=== PATIENT | male | born 1970 ===

== ENCOUNTER 2025-06-24 05:47 | Emergency (ER) | payer OTHER, SELFPAY ==
[2025-06-24 05:52] VITALS: BP 143/90
[2025-06-24 06:25] VITALS: BP 127/89
[2025-06-24 06:27] VITALS: BMI 28.5
[2025-06-24 06:39] LABS: Hematocrit 41.3 % (39.0-52.0); Hemoglobin 13.4 g/dL (13.0-18.0); Mean Corp Hgb Conc. 32.4 g/dL (33.0-37.0); Mean Corpuscular Volume 77.1 fL (80.0-94.0); Nucleated Red Blood Cells % 0 % (-); Platelet Count 273 10^3/uL (130-400); Red Cell Dist. Width 14.6 % (11.5-14.5)
[2025-06-24 06:52] LABS: ALT (SGPT) 21 U/L (0-50); AST (SGOT) 20 U/L (17-59); Albumin 4.6 g/dl (3.5-5.0); Alkaline Phosphatase 61 U/L (38-126); Blood Urea Nitrogen 10 mg/dl (9-20); Calcium 9.4 mg/dl (8.4-10.2); Carbon Dioxide 24 mmol/L (22-30); Chloride 107 mmol/L (98-107); Estimated Creatinine Clearance > 125 ml/min; Glucose 106 mg/dl (70-99); Potassium 4.3 mmol/L (3.5-5.1); Sodium 141 mmol/L (135-145); Total Protein 7.7 g/dl (6.3-8.2); eGFR > 60.00
[2025-06-24 07:00] VITALS: BP 148/82
[2025-06-24 07:05] LABS: Troponin I < 0.012 ng/ml
[2025-06-24 08:00] VITALS: BP 118/82
[2025-06-24 08:42] LABS: Troponin I < 0.012 ng/ml
[2025-06-24 09:00] VITALS: BP 93/76
--- NOTE | 2025-06-24 09:45 | ED.GENMED ---
History of Present Illness
General
Chief Complaint: Chest Pain
Source: patient and spouse
Time Seen by Provider: 06/24/25 06:34
History of Present Illness
History of Present Illness:
Note:
CHIEF COMPLAINT(S)
Chest pain.
HISTORY OF PRESENT ILLNESS
The patient is a 55-year-old male presenting with chest pain that started before 4 a.m. The pain is described as pressure-like and located in the middle of the chest. The patient denies any similar previous episodes. The chest pain worsens with deep
breaths and shoulder movements but is present even without exertion. The discomfort radiates to the back. The patient went to bed feeling fine without any pain. He has a known history of hypertension and diabetes. There is no known history of
coronary artery disease, and the patient has not undergone a stress test before. The patients family history includes a brother who from malaria, with no known history of cardiac issues.
Additional historian
Spouse states that he did have several episodes similar in the past that was attributed to anxiety after his brother . His brother of malaria. Spouse states that he had workups that were unremarkable but did not have a stress test to her
knowledge
PAST MEDICAL AND SURGICAL HISTORY
None
CHRONIC MEDICAL CONDITIONS SIGNIFICANTLY AFFECTING CARE
None
SOCIAL DETERMINANTS AFFECTING HEALTH
None indicated.
ALLERGIES
No known allergies to medications.
FAMILY HISTORY
Brother , cause of : malaria.
IMMUNIZATION HISTORY
Not discussed.
SOCIAL HISTORY
The patient denies smoking and drinking alcohol.
REVIEW OF SYSTEMS
- Cardiovascular: Reports pressure-like chest pain, no edema.
- Pulmonary: Discomfort worsens with deep breaths, otherwise normal breathing.
- Gastrointestinal: No belching.
- Musculoskeletal: Pain radiates to the back and worsens with shoulder movement.
PHYSICAL EXAM
General: Alert, no acute distress.
Skin: Warm, dry.
Head: Normocephalic, atraumatic.
Neck: Supple, trachea midline.
Eye Ears, nose, mouth and throat: Oral mucosa moist.
Cardiovascular: Regular heart rate, no murmurs. Normal peripheral perfusion, no edema.
Respiratory: Lungs clear to auscultation, respirations non-labored.
Gastrointestinal: Abdomen soft, non-tender.
Back: Normal range of motion, normal alignment.
Musculoskeletal: Normal ROM, normal strength. Radiating pain noted upon shoulder movement.
Neurological: Alert and oriented to person, place, time, and situation, No focal neurological deficit observed.
Psychiatric: Cooperative, appropriate mood & affect.
PROBLEM LIST
Acute: Chest pain.
Chronic: Hypertension, diabetes.
PLAN
- Monitor and repeat cardiac enzyme tests to rule out acute coronary syndrome.
- Chest X-ray reviewed and normal.
- Assess pain regularly, and notify staff if pain worsens.
DIFFERENTIAL DIAGNOSIS
The Differential Diagnosis includes, in no particular order and is not limited to:
1. Acute Coronary Syndrome
2. Pulmonary Embolism
3. Gastroesophageal Reflux Disease
4. Musculoskeletal Pain
5. Aortic Dissection
6. Costochondritis
7. Pneumonia
8. Pericarditis
9. Gallbladder disease
10. Panic attack
EKG
My independent EKG interpretation is:
- Rhythm: Normal sinus rhythm
- Heart Rate: 65
- VT Interval: Normal
- QRS Duration: Normal
- QT Interval: Normal
- [place]: Normal axis
- Abnormalities: No acute ischemic changes
- Other Observations: Nonspecific ST-T wave changes
Disposition:
SUMMARY OF ENCOUNTER
The patient, a 55-year-old male, presented to the emergency department with chest pain starting before 4 a.m. The pain, described as pressure-like, worsened with movements such as extending his shoulders. The pain was somewhat reproducible upon
examination. The patient has known hypertension and diabetes but does not have significant additional risk factors for coronary artery disease. Upon examination, vital signs, including blood pressure at 118/82, were normal, and the patient appeared
well. An EKG showed nonspecific findings, but troponin type 2 tests were negative. Other tests, including a CBC, chemistry panel, and B-type natriuretic peptide (BNP) test, returned normal results, as did a chest x-ray. Based on these findings, it
appears appropriate for the patient to be managed on an outpatient basis and referred for cardiology follow-up for further evaluation, possibly including stress testing.
ASSESSMENT
The patient is experiencing chest pain with characteristics suggestive of musculoskeletal origins, given the pains reproducibility with physical movement and negative cardiac markers.
PLAN
The patient will be monitored for any changes, and pain assessment will continue. Its recommended that he follow up with a drug discovery informatics specialist for further evaluation, including a possible stress test to rule out any underlying coronary artery
disease.
INDEPENDENT REVIEW OF LABS AND INTERPRETATION OF TESTS
- My independent review of EKG is nonspecific findings observed.
- My independent review of Troponin type 2 indicates negative results.
- My independent review of CBC shows normal results.
- My independent review of chemistry is normal findings.
- My independent review of B-type natriuretic peptide (BNP) is normal.
- My independent interpretation of the chest x-ray is normal.
PATIENT EDUCATION AND COUNSELING
The patient was advised that while the immediate findings were reassuring, it is important to pursue further evaluation with a reed press feeder to rule out any cardiac concerns, especially given his underlying hypertension and diabetes.
FOLLOW-UP INSTRUCTIONS
The patient is advised to schedule a follow-up appointment with a reed press feeder for further evaluation and possible stress testing.
MEDICAL DECISION MAKING
- Number and Complexity of Problems Addressed: Chronic conditions affecting care include hypertension and diabetes. Differential Diagnosis included acute coronary syndrome, pulmonary embolism, gastroesophageal reflux disease, musculoskeletal pain,
aortic dissection, costochondritis, pneumonia, pericarditis, gallbladder disease, and panic attack.
- Data:
- Category 1: My independent interpretations included nonspecific EKG findings and various normal lab results (CBC, chemistry, BNP). A normal chest x-ray was also reviewed.
- Category 2: Not applicable.
- Category 3: Discussion of management, particularly about potential outpatient follow-up and cardiology evaluation.
- Risk: Consideration of Admission/Observation: Escalation of care including admission/observation was considered given the complexity and risk of the patients presenting complaint, exam findings, and their underlying comorbidities. However,
ultimately the patient is considered safe for outpatient management with close follow-up. Reasoning: Work-up reassuring, does not reveal any acute life/organ-threatening processes, patients symptoms well controlled upon reevaluation, reexamination
is reassuring, vitals are stable, patient agreeable with discharge, reliable for follow-up.
DIAGNOSIS
Atypical chest pain
Past History
Past History
ED Past Medical History: None
Phy Exam
Physical Exam
Physical Exam:
.
Scores
Heart Score for Chest Pain Patients
STEMI patient?: No
History: Slightly or Non-Suspicious
ECG: Nonspecific Repolarization
Age: >45 - <65 years
Risk Factors: No Risk Factors
Troponin: </= Normal Limit
Heart Score for Chest Pain Patients: 2
Heart Score Risk: 2.5% MACE over next 6 weeks
Course
Orders/Labs/Results
Orders:
Orders
06/24/25 05:50
Electrocardiogram (*1) Urgent
Reason for Study: Other
Other Reason for Exam: Respiratory Distress
Cardiac Monitoring- Treatment ONCE
EKG- Treatment ONCE
IV Insert/Care/Rem.- Treatment PRN
CR Chest - 2 Views Urgent
Comment:
Reason For Exam: respiratory distress
O2 Therapy [RESP] Urgent
Titrate/Wean O2 to maintain O2 sat greater than (%): 93
Special Instructions: TO MAINTAIN CONTINUOUS O2 SATS >/= 93%
Pulse Ox/cont/shift [RESP] Urgent
Quantity: 1
Special Instructions: continuous pulse ox
06/24/25 06:31
Complete Blood Count/With Diff Urgent
Comprehensive Metabolic Panel Urgent
NT-proBNP Urgent
Troponin I Urgent
06/24/25 07:16
EKG- Treatment ONCE
06/24/25 07:51
Troponin I Urgent
06/24/25 08:50
Electrocardiogram (*1) Urgent
Reason for Study: Chest Pain
Abnormal Lab Results
06/24/25
06:31
MCV 77.1 L fL
(80.0-94.0)
MCH 25.0 L pg
(27.0-31.0)
MCHC 32.4 L g/dL
(33.0-37.0)
RDW 14.6 H %
(11.5-14.5)
Absolute Monos (auto) 0.8 H 10^3/uL
(0.1-0.6)
Monocytes % 10.1 H %
(1.7-9.3)
Creatinine 0.6 L mg/dL
(0.7-1.3)
Glucose 106 H mg/dl
(70-99)
06/24/25 06:31
06/24/25 06:31
Vital Signs
Initial and Last Documented VS:
Initial Vital Signs
Temp Pulse Resp BP Pulse Ox
97.7 F 67 20 143/90 100
06/24/25 05:52 06/24/25 05:52 06/24/25 05:52 06/24/25 05:52 06/24/25 05:52
Last Documented Vital Signs
Temp Pulse Resp BP Pulse Ox
97.7 F 78 23 131/76 99
06/24/25 05:52 06/24/25 09:45 06/24/25 09:45 06/24/25 10:00 06/24/25 09:49
*Pulse Oximetry
SaO2: 99
Oxygen Mode of Delivery: Room air
Patient hypoxic: no
*Critical Care Note
Total Time (30-74mins, 75-104mins- exclusive of procedures): Not Applicable
ED Attending Note
-
Portions of this chart may have been created with voice recognition software.� Occasional wrong word or��sound alike� substitutions may have occurred due to the inherent limitations of voice recognition software.
Discharge Plan
Departure
Patient Disposition: Home (Routine Discharge)
Date of Disposition: 06/24/25
Time of Disposition: 09:45
Patient with high blood pressure during this ER visit?: No
Discharge Problem:
Chest pain
Instructions: Chest Pain DCA Follow Up
Prescriptions:
No Action
No Current Medications
0
Referrals:
[place] MD [Family Provider, Internal Medicine]
Activity Restrictions/Additional Instructions:
Please avoid strenuous or exertional activity until cleared by cardiology. Please see cardiology in the next 48 hours for reevaluation. Return immediately for worsening pain, shortness breath, palpitations, sweating, nausea, weakness of any kind,
numbness, tingling or any other concerns.
Cardiology has been notified and a follow up appointment has been requested. Someone will call you on the next business day to schedule a follow up appointment.
Interventions
Interventions:
*Risk Screen - Suicide Last Done: 06/24/25 06:01
*General Assessment Last Done: 06/24/25 06:01
*Neglect/Abuse Screening Last Done: 06/24/25 06:01
*ED- Fall Risk Assessment Last Done: 06/24/25 06:01
*ED COVID-19 Vaccine History Last Done: 06/24/25 06:01
*ED Influenza Vaccine History Last Done: 06/24/25 06:01
*Nursing Disposition Last Done: 06/24/25 10:05
ED- Cardiac Assessment Last Done: 06/24/25 09:10
Discharge Date and Time
Discharge Date/Time: 06/24/25 10:26
Print Language: GUATEMALAN
[2025-06-24 10:00] VITALS: BP 131/76
== END 2025-06-24 10:26 | disposition home or self-care (01) ==
LOC: EMR 05:47
PROVIDERS: Emergency Medicine; EMERGENCY PHYSICIAN Emergency Medicine; FAMILY PHYSICIAN Internal Medicine
DX: R07.89 Other chest pain (principal); E11.9 Type 2 diabetes mellitus without complications; I10 Essential (primary) hypertension
CPT/HCPCS: 99285; 71046; 80053; 83880; 84484; 85025; 93005

== ENCOUNTER → 2025-08-03 08:21 | Outpatient (REF) | payer OTHER, SELFPAY ==
--- NOTE | 2025-08-03 10:15 | CARDSERVDEF ---
Echocardiogram with Definity completed after protocol screening completed. Allergies verified.
Patent IV site: Right antecubital 22 G PC
IV site flushed with 0.9% NaCl pre and post administration.
Diluted bolus method utilized to enhance visualization of ventricular [place].
Total volume given: _4___ mL
Patient tolerated all procedures well without complications.
Heplock D/C ed at 1015, site clear. Pressure held, no bleeding, 2x2 applied and taped. No change in status.
== END ==
LOC: RCS 08:21
PROVIDERS: ATTENDING PHYSICIAN Internal Medicine Cardiovascular Disease; FAMILY PHYSICIAN Internal Medicine
DX: R07.9 Chest pain, unspecified (principal)
CPT/HCPCS: 93017; 93306; Q9957

== ENCOUNTER → 2025-08-30 07:51 | Outpatient (REF) | payer OTHER, SELFPAY | LOC: HWRCS 07:51 | PROVIDERS: ATTENDING PHYSICIAN Internal Medicine Cardiovascular Disease; FAMILY PHYSICIAN Internal Medicine | DX: R07.9 Chest pain, unspecified (principal) | CPT/HCPCS: 78452; 93017; A9500 ==